=== PATIENT | female | born 1980 | race Caucasian/White ===

== ENCOUNTER 2023-03-13 21:07 | Emergency (ER) | payer OTHER ==
[2023-03-13 21:14] VITALS: BP 134/75; PULSE 87; RESP 20; TEMP 99.4; BMI 27.4
[2023-03-14] MEDS ORDERED: ACETAMINOPHEN 500 MG TABLET (FP) PO ONE (01:08)
[2023-03-14] MEDS ORDERED: ACETAMINOPHEN 325 MG TABLET (FP) ONE (02:08)
== END 2023-03-14 02:38 | disposition home or self-care (01) ==
LOC: JER 21:07
DX: R05.9 Cough, unspecified (principal); R07.9 Chest pain, unspecified; R51.9 Headache, unspecified; U07.1 COVID-19
CPT/HCPCS: 0241U-QW; 93005; 93010; 99284-25